=== PATIENT | female | born 1985 | race Caucasian/White ===

== ENCOUNTER 2016-08-31 13:11 | Emergency (ER) | payer BC ==
[~2016-08-31] VITALS: Ht 165.1 cm; Wt 68.0 kg
--- NOTE | 2016-08-31 13:15 | NUR ---
PT [id number] FROM LIBRARY: ANXIETY ATTACK. PLACED ON MONITOR. AWAITING MD ORDER
--- NOTE | 2016-08-31 13:40 | NUR ---
LAC #20 IV ACCESS. BLOOD SAMPLE COLLECTED SENT TO LAB
--- NOTE | 2016-08-31 13:40 | NUR ---
Anastacia johnston in [facility] - 08/31/16 at 1408 by LEVI XRAY AT BEDSIDE
[2016-08-31] MEDS ORDERED: LORAZEPAM INJ 2 MG/ML VIAL ONE (13:43)
[2016-08-31] MEDS ORDERED: IV NS 0.9% 1,000 ML ONE (13:43)
[2016-08-31] MEDS ORDERED: IV SET PRIMARY PUMP SET 1 EA INFUS.SET MC ONE (13:43)
[2016-08-31 13:53] LABS: BASOPHILS % (AUTO) 0.4 % (0.0-2.0); EOSINOPHILS % (AUTO) 0.1 % (0.0-6.0); HEMATOCRIT 37 % (33-45); HEMOGLOBIN 12.4 g/dL (11.5-14.8); LYMPHOCYTES # (AUTO) 1.3 /CMM (0.8-4.8); LYMPHOCYTES % (AUTO) 16.5 % (20.0-44.0); MEAN CORPUSCULAR HEMOGLOBIN 29 PG (26.0-33.0); MEAN CORPUSCULAR HGB CONC 33 g/dl (31.0-36.0); MEAN CORPUSCULAR VOLUME 88 fL (82-100); MONOCYTES # (AUTO) 0.3 /CMM (0.1-1.30); MONOCYTES % (AUTO) 4.2 % (2.0-12.0); NEUTROPHILS # (AUTO) 6.1 /CMM (1.8-8.9); NEUTROPHILS % (AUTO) 78.8 % (43.0-81.0); PLATELET COUNT (AUTO) 275 /CMM (150-450); RDW COEFFICIENT OF VARIATION 12.3 (11.5-15.0); RED BLOOD CELL COUNT(AUTO) 4.23 MIL/uL (4.0-5.2); WHITE BLOOD COUNT (AUTO) 7.7 K/uL (4.3-11.0)
[2016-08-31] MEDS ORDERED: LORAZEPAM INJ 2 MG/ML VIAL IV ONE (14:00)
[2016-08-31] MEDS ORDERED: IV NS 0.9% 1,000 ML BAG IV ONE (14:00)
[2016-08-31 14:04] LABS: CARBON DIOXIDE 21 mmol/L (21-32); CHLORIDE 105 mmol/L (98-107); CREATININE 0.7 mg/dL (0.6-1.3); GFR 98 mL/min (>60); GLUCOSE 100 mg/dL (74-106); POTASSIUM 3.5 mmol/L (3.5-5.1); SODIUM SERUM 141 mmol/L (136-145); UREA NITROGEN, BLOOD 7 mg/dL (7-18)
--- NOTE | 2016-08-31 14:08 | NUR ---
XRAY AT BEDSIDE
[2016-08-31 14:09] LABS: TROPONIN I < 0.017 ng/mL (0.00-0.056)
[2016-08-31 14:10] LABS: ALANINE AMINOTRANSFERASE 18 U/L (12-78); ALBUMIN 4.2 g/dL (3.4-5.0); ALKALINE PHOSPHATASE 56 U/L (46-116); ASPARTATE AMINOTRANSFERASE 13 U/L (15-37); BILIRUBIN,DIRECT 0.1 mg/dL (0.0-0.2); BILIRUBIN,TOTAL 0.5 mg/dL (0.2-1.0); TOTAL PROTEIN, SERUM 7.6 g/dL (6.4-8.2)
[2016-08-31 14:13] LABS: INR 1.04 (0.87-1.13); PROTHROMBIN TIME 11.2 SECS (9.5-12.7)
--- NOTE | 2016-08-31 14:34 | NUR ---
Patient discharged to home in stable condition. Written and verbal after care instructions given. Patient verbalizes understanding of instruction.
--- NOTE | 2016-08-31 14:34 | NUR ---
IV removed. Catheter intact and site benign. Pressure and 4x4 applied to site. No bleeding noted.
[2016-08-31 14:35] VITALS: BP 143/84
== END 2016-08-31 14:36 | disposition home or self-care (01) ==
LOC: ER 13:12
DX: F41.9 Anxiety disorder, unspecified (principal); R42 Dizziness and giddiness; R07.9 Chest pain, unspecified; R51 Headache
CPT/HCPCS: 36415; 71010; 80048; 80076; 84484; 85025; 85730; 93005; 96361; 96374; 99285; A4606; J2060; J7030; Z7610

== ENCOUNTER 2020-02-21 12:01 | Emergency (ER) | payer BC ==
[~2020-02-21] VITALS: Ht 162.6 cm; Wt 81.2 kg
[2020-02-21] MEDS ORDERED: IBUPROFEN 400 MG TABLET PO ONE (12:30)
[2020-02-21] MEDS ORDERED: ACETAMINOPHEN ES 500 MG TABLET PO ONE (12:30)
[2020-02-21] MEDS ORDERED: ACETAMINOPHEN ES 500 MG TABLET ONE (12:38)
[2020-02-21] MEDS ORDERED: IBUPROFEN 400 MG TABLET ONE (12:39)
--- NOTE | 2020-02-21 12:44 | NUR ---
TAR HEEL AT BEDSIDE
--- NOTE | 2020-02-21 13:20 | NUR ---
DC Patient discharged to home in stable condition. Written and verbal after care instructions given. Patient verbalizes understanding of instruction.
[2020-02-21 13:22] VITALS: BP 132/81
== END 2020-02-21 13:22 | disposition home or self-care (01) ==
LOC: ER 12:05
DX: M62.830 Muscle spasm of back (principal); M54.6 Pain in thoracic spine
CPT/HCPCS: 71045-TC

== ENCOUNTER 2021-07-18 08:58 | Emergency (ER) | payer BC, MEDICAID ==
[~2021-07-18] VITALS: Ht 162.6 cm; Wt 73.9 kg
--- NOTE | 2021-07-18 09:30 | NUR ---
BIBS FOR C/O HEADACHE 12/10 SINCE YESTERDAY, FEELING DIZZY YESTERDAY BUT RESOLVED. THE PATIENT IS ALERT AND ORIENTED X4. IN ROOM AIR AND DENIES SOB. RESPIRATION REGULAR AND UNLABORED. ATTACHED TO THE MONITOR. WARM BLANKET PROVIDED FOR COMFORT. WILL CONTINUE TO MONITOR THE PATIENT.
--- NOTE | 2021-07-18 10:30 | NUR ---
THE PATIENT SIGNED WAIVER CONFIRMING THAT SHE IS NOT .
--- NOTE | 2021-07-18 10:44 | NUR ---
DR KERNS AT THE BEDSIDE
[2021-07-18] MEDS ORDERED: METOCLOPRAMIDE HCL 10 MG/2 ML VIAL IV ONE (11:00)
[2021-07-18] MEDS ORDERED: diphenhydrAMINE HCL 50 MG/ML VIAL IV ONE (11:00)
[2021-07-18] MEDS ORDERED: IV NS 0.9% 1,000 ML BAG IV ONE (11:00)
[2021-07-18] MEDS ORDERED: ACETAMINOPHEN ES 500 MG TABLET PO ONE (11:00)
[2021-07-18] MEDS ORDERED: diphenhydrAMINE HCL 50 MG/ML VIAL ONE (11:08)
[2021-07-18] MEDS ORDERED: METOCLOPRAMIDE HCL 10 MG/2 ML VIAL ONE (11:08)
[2021-07-18] MEDS ORDERED: ACETAMINOPHEN ES 500 MG TABLET ONE (11:08)
[2021-07-18] MEDS ORDERED: IBUP-1955 PO (11:46)
[2021-07-18] MEDS ORDERED: KETOROLAC TROMETHAMINE 15 MG/ML VIAL ONE (11:51)
[2021-07-18] MEDS ORDERED: KETOROLAC TROMETHAMINE INJ 30 MG/ML VIAL IM ONE (12:00)
--- NOTE | 2021-07-18 12:02 | NUR ---
THE PATIENT DID NOT WANT TO WAIT FOR THE IV NS TO BE FINISHED PRIOR LEAVING. DR KERNS AWARE. IV removed. Catheter intact and site benign. Pressure and 4x4 applied to site. No bleeding noted.Patient discharged to home in stable condition. Written and verbal after care instructions given. Patient verbalizes understanding of instruction.
[2021-07-18 12:03] VITALS: BP 134/75
== END 2021-07-18 12:04 | disposition home or self-care (01) ==
LOC: EDUNIT# 08:58 → ER 09:05
DX: R51.9 Headache, unspecified (principal)
CPT/HCPCS: 70450; 96361; 96374; 96375; 99284; J1200; J1885; J2765; J7030